=== PATIENT | female | born 1980 | race Caucasian/White ===

== ENCOUNTER 2020-06-04 11:52 | Emergency (ER) | payer MEDICAID ==
[~2020-06-04] VITALS: Ht 162.6 cm; Wt 61.4 kg
[~2020-06-04 11:52] MED LIST: IBUPROFEN600 MG PO; MOTRIN600 MG PO; PERCOCET 5-3251 TAB PO; VENTOLIN HFA18 GM INH; ZANTAC150 MG PO
[2020-06-04 11:58] VITALS: Ht 162.6 cm; Wt 61.4 kg
[2020-06-04 12:30] LABS: BASOPHILS 0.3 % (0-2); EOSINOPHILS 0.8 % (0-7); HEMATOCRIT 41.9 % (36.0-48.0); HEMOGLOBIN 13.5 g/dL (12-16); IMMATURE GRANULOCYTES 0.2 % (0-5); LYMPHOCYTE ABS# 2.23 10x3/uL (1.18-3.74); LYMPHOCYTES 24.6 % (15-50); MCH 29.9 pg (26.0-34.0); MCHC 32.2 g/dL (31.0-37.0); MCV 92.9 fL (80.0-100.0); MEAN PLATELET VOLUME 9.8 fL (7.4-10.4); MONOCYTES 7.7 % (2-11); NEUTROPHIL ABS# 6.03 10x3/uL (1.56-6.13); NEUTROPHILS 66.4 % (40-80); PLATELET COUNT 356 10x3/uL (130-400); RBC 4.51 10x6/uL (4.00-5.40); RDW 12.4 % (11.5-14.5); WBC 9.1 10x3/uL (4.8-10.8)
[2020-06-04 12:30] LABS: BILIRUBIN NEGATIVE (NEGATIVE); KETONE NEGATIVE (NEGATIVE); NITRITE NEGATIVE (NEGATIVE); UROBILINOGEN NORMAL mg/dL (< 2)
[2020-06-04 12:32] LABS: BACTERIA FEW HPF (NONE SEEN); SQUAMOUS EPITHELIAL 0-5 HPF (0-4); WHITE CELLS - URINE 0-5 HPF (0-4)
[2020-06-04 12:40] LABS: CALC OSMOLALITY 265 mosm/kg (275-300); CALCIUM 8.1 mg/dL (8.5-10.1); CARBON DIOXIDE 24.5 mmol/L (21.0-32.0); CHLORIDE - SERUM 99 mmol/L (98-107); CREATININE - SERUM 0.7 mg/dL (0.6-1.3); GLUCOSE 94 mg/dL (74-106); POTASSIUM - SERUM 3.9 mmol/L (3.5-5.1); SODIUM 134 mmol/L (136-145); UREA NITROGEN 6 mg/dL (7-18); eGFR NON AFRICAN AMERICAN > 90 mL/min (90-120)
[2020-06-04 12:48] LABS: ALBUMIN 2.8 g/dL (3.4-5.0); ALKALINE PHOSPHATASE 111 U/L (30-120); ALT (SGPT) 15 U/L (10-68); AMYLASE - SERUM 23 U/L (25-115); BILIRUBIN - TOTAL 0.27 mg/dL (0.2-1.3); LIPASE 28 U/L (73-393); PROTEIN - SERUM 7.4 g/dL (6.4-8.2); TROPONIN-I < 0.017 ng/mL (0.000-0.060)
[2020-06-04 14:00] VITALS: BP 100/64
[2020-06-04] MEDS ORDERED: VOLTAREN75 MG PO (14:53)
[2020-06-04 19:18] LABS: HCG URINE NEGATIVE (NEGATIVE)
== END 2020-06-04 15:05 | disposition home or self-care (01) ==
LOC: D.ER 11:52
PROVIDERS: Family Medicine
DX: R10.2 Pelvic and perineal pain (principal); R10.9 Unspecified abdominal pain; R59.1 Generalized enlarged lymph nodes; J45.909 Unspecified asthma, uncomplicated; Z72.0 Tobacco use; R10.32 Left lower quadrant pain; R51.9 Headache, unspecified

== ENCOUNTER 2020-06-05 01:31 | Inpatient (IN) | payer MEDICAID ==
[~2020-06-05] VITALS: Ht 162.6 cm; Wt 61.4 kg
[~2020-06-05 01:31] MED LIST changes: +VOLTAREN75 MG PO
--- NOTE | 2020-06-05 02:45 | NUR ---
RECEIVED FROM ER VIA STRECHER. AROUSES TO VERBAL STIMULI. IV TO LFA INTACT WITHOUT REDNESS OR EDEMA NOTED. ORIENTED TO ROOM CL IN REACH
--- NOTE | 2020-06-05 03:00 | NUR ---
I have reviewed this patient and I concur with the Shift Assessment completed by the Licensed Practical Nurse today this shift.
[2020-06-05 03:56] VITALS: BP 99/51; BMI 23.2
[2020-06-05 08:09] VITALS: BP 134/77
--- NOTE | 2020-06-05 09:30 | NUR ---
RESTING IN BED, NO DISTRESS NOTED, IV INFUSING, CONT TO MONITOR ABD PAIN
--- NOTE | 2020-06-05 11:20 | NUR ---
DR CHOWDHURY HERE TO SEE PT, VAGINAL SWAB SENT TO LAB
[2020-06-05 11:41] VITALS: Ht 162.6 cm; Wt 61.4 kg
[2020-06-05 12:04] VITALS: BP 136/86
[2020-06-05 17:29] VITALS: BP 149/81
--- NOTE | 2020-06-05 19:39 | NUR ---
PT LEFT JACKIE STATING THAT SHE NEEDS TO GO TAKE CARE OF HER KIDS. SHE WAS YELLING AT THE MALE VISITOR IN HER ROOM THAT WE WERE LETTING HER TEMPERATURE GO UP...BUT REFUSED TO HAVE TEMP TAKEN. PAGED DR HEATH AND DR HIGUERA TO ADVISE THAT PT LEFT. VESSEL ENGINEER NOTIFIED.
--- NOTE | 2020-06-06 17:35 | MORECARE ---
CASE MANAGEMENT DISCHARGE SUMMARY PATIENT: NORMA COREA UNIT: [id number] ADM DATE: 06/05/20 AGE: 39 : 76 SEX: F ROOM/BED: D.2205 AUTHOR: JESSICADOC PHYSICIAN: REFERRING PHYSICIAN: PATRICIO HEATH MD DATE OF SERVICE: 06/06/20 Case Management Discharge Planning Summary DCP REVIEW SUMMARY ANTICIPATED D/C DATE: EXPECTED LOS : CASE STATUS: DCP Not started INITIAL REVIEW: 06/05/2020 INITIAL REVIEWER: Tete Tapia FINAL DISCHARGE DISPOSITION: : FINAL REVIEWER: FINAL REVIEW DATE: DCP [employer] Questions [employer]swers QUESTION: ANSWER : PATIENT: NORMA COREA ENCOUNTER: [id number] MEDICAL RECORD#: [id number] ADMISSION DATE: 06/05/2020 DISCHARGE DATE: 06/05/2020 ATTENDING MD: PATRICIO LOCO : AGE: 39 MARITAL STATUS: S DC PLAN ID: [id number] FACILITY: [facility] PRINTED ON: 06/06/20 17:35 CT All edits/amendments must be made on the electronic document DICTATION DATE: 06/06/201734 CONTRACT DRIVER: DM 06/06/201734 RPT#: [id number] DC DATE:06/05/20 STATUS: DIS IN [facility] [address] [place] [address] END OF REPORT
== END 2020-06-05 19:41 | disposition left against medical advice (07) | DRG 816 ==
LOC: D.ER 01:31 → D.MS 01:49
PROVIDERS: ADMIT Legal Medicine; ATTEND Legal Medicine
DX: R59.0 Localized enlarged lymph nodes (principal); R10.2 Pelvic and perineal pain; Z72.0 Tobacco use; F10.20 Alcohol dependence, uncomplicated; N89.8 Other specified noninflammatory disorders of vagina

== ENCOUNTER 2020-08-27 16:11 | Emergency (ER) | payer MEDICAID ==
[~2020-08-27] VITALS: Ht 162.6 cm; Wt 63.6 kg
[2020-08-27 16:13] VITALS: BP 139/96; Ht 162.6 cm; Wt 63.6 kg
[2020-08-27] MEDS ORDERED: TOPAMAX50 MG PO (18:55)
== END 2020-08-27 20:02 | disposition home or self-care (01) ==
LOC: D.ER 16:11
DX: R51.9 Headache, unspecified (principal)